=== PATIENT | female | born 1945 | race Two or more races ===

== ENCOUNTER 2021-02-09 08:56 | Emergency (ER) | payer MEDICARE, MEDICAID ==
[2021-02-09] MEDS ORDERED: Sodium Chloride 0.9% 10 ML Syringe FLUSH PRN (09:31)
[2021-02-09] MEDS ORDERED: Ketorolac 30 MG/ML SDV IVPUSH ONE (09:31)
[2021-02-09] MEDS ORDERED: Lactated Ringers 1,000 ML IV ONE (09:31)
[2021-02-09] MEDS ORDERED: Ondansetron 4 MG/2 ML SDV IVPUSH ONE (09:31)
--- NOTE | 2021-02-09 09:34 | EDM.PDOC ---
ED HPI GENERAL MEDICAL PROBLEM - General Chief Complaint: Back Pain or Injury Stated Complaint: FELL LAST NIGHT AND HURT BACK-WEAKNESS Time Seen by Provider: 02/09/21 09:24 Source of Information: Reports: Patient, Family, RN Notes Reviewed History Limitations: Reports: No Limitations - History of Present Illness INITIAL COMMENTS - FREE TEXT/NARRATIVE: 75-year-old female presents emergency department day complaint of chest wall pain, she injured herself last night when she fell in her bedroom hitting the bedpost on the left side of her chest posterior mid axillary area near the lower aspect of her rib cage she does have a significant bruise there. She also states she has not been eating and drinking very well feels nauseated had some dry heaves. Lower Back Pain Score (Numeric/FACES): 8 - Related Data Allergies Allergy/AdvReac Type Severity Reaction Status Date / Time No Known Allergies Allergy Verified 02/09/21 09:17 Home Meds: Home Meds Donepezil [Aricept] 5 mg PO ASDIRECTED 02/09/21 [History] Ezetimibe 10 mg PO DAILY 02/09/21 [History] Fluconazole 150 mg PO ASDIRECTED 02/09/21 [History] Meloxicam 15 mg PO ASDIRECTED 02/09/21 [History] Prazosin HCl [Prazosin] 2 mg PO DAILY 02/09/21 [History] Venlafaxine [Effexor] 75 mg PO DAILY 02/09/21 [History] amLODIPine [Norvasc] 5 mg PO DAILY 02/09/21 [History] Past Medical History Neurological History: Reports: Alzheimers Disease Social & Family History - Tobacco Use Tobacco Use Status *Q: Never Tobacco User - Recreational Drug Use Recreational Drug Use: No ED ROS GENERAL - Review of Systems Review Of Systems: See Below Constitutional: Reports: No Symptoms HEENT: Reports: No Symptoms Respiratory: Reports: No Symptoms Cardiovascular: Reports: Chest Pain GI/Abdominal: Reports: Nausea, Vomiting Musculoskeletal: Reports: Back Pain Skin: Reports: Bruising Neurological: Reports: No Symptoms ED EXAM, UPPER BACK/NECK PAIN - Physical Exam Exam: See Below Exam Limited By: No Limitations General Appearance: Alert, WD/WN, No Apparent Distress Cardiovascular/Respiratory: Regular Rate, Rhythm, No M/R/G, Normal Breath Sounds, No Respiratory Distress, Other (Does have bruising on her chest mid axillary line posterior to that there is a bruise about the size of a softball it is tender to the touch located about T10 area) GI/Abdominal: Soft, Non-Tender Back Exam: Normal Inspection. No: CVA Tenderness (R), CVA Tenderness (L), Paraspinal Tenderness, Vertebral Tenderness Course - Vital Signs Last Recorded V/S: Last Vital Signs Temp 96.6 F L 02/09/21 09:16 Pulse 113 H 02/09/21 09:16 Resp 18 02/09/21 09:16 BP 153/85 H 02/09/21 09:16 Pulse Ox 98 02/09/21 09:16 - Orders/Labs/Meds Orders: Active Orders 24 hr Category Date Time Status Peripheral IV Care [RC] . DIRECTED Care 02/09/21 09:31 Active Sodium Chloride 0.9% [Saline Flush] Med 02/09/21 09:31 Active 10 ml FLUSH ASDIRECTED PRN Peripheral IV Insertion Adult [OM.PC] Urgent Oth 02/09/21 09:30 Ordered Medication Orders Sodium Chloride (Sodium Chloride 0.9% 10 Ml Syringe) 10 ml FLUSH ASDIRECTED PRN PRN Reason: Keep Vein Open Last Admin: 02/09/21 10:02 Dose: 10 ml Documented by: PREILOR Labs: Laboratory Tests 02/09/21 02/09/21 02/09/21 Range/Units 10:00 10:00 12:44 WBC 16.5 H (4.5-11.0) K/uL RBC 5.00 (3.30-5.50) M/uL Hgb 15.0 (12.0-15.0) g/dL Hct 41.3 (36.0-48.0) % MCV 83 (80-98) fL MCH 30 (27-31) pg MCHC 36 (32-36) % Plt Count 334 (150-400) K/uL Neut % (Auto) 87.8 H (36-66) % Lymph % (Auto) 5.0 L (24-44) % [place] % (Auto) 7.0 H (2-6) % Eos % (Auto) 0.1 L (2-4) % Baso % (Auto) 0.1 (0-1) % Sodium 132 L (140-148) mmol/L Potassium 3.4 L (3.6-5.2) mmol/L Chloride 95 L (100-108) mmol/L Carbon Dioxide 24 (21-32) mmol/L Anion Gap 16.4 H (5.0-14.0) mmol/L BUN 45 H (7-18) mg/dL Creatinine 0.9 (0.6-1.0) mg/dL Est Cr Clr Drug Dosing 47.84 mL/min Estimated GFR (MDRD) > 60 (>60) Glucose 141 H (74-106) mg/dL Calcium 9.7 (8.5-10.1) mg/dL Urine Color Yellow (YELLOW) Urine Appearance Clear (CLEAR) Urine pH 6.0 (5.0-8.0) Ur Specific [place] >= 1.030 (1.008-1.030) Urine Protein 30 H (NEGATIVE) mg/dL Urine Glucose (UA) Negative (NEGATIVE) mg/dL Urine Ketones 40 H (NEGATIVE) mg/dL Urine Occult Blood Negative (NEGATIVE) Urine Nitrite Negative (NEGATIVE) Urine Bilirubin Moderate H (NEGATIVE) Urine Urobilinogen 0.2 (0.2-1.0) EU/dL Ur Leukocyte Esterase Negative (NEGATIVE) Urine RBC 0-5 (0-5) Urine WBC Not seen (0-5) Ur Epithelial Cells Not seen Amorphous Sediment Not seen Urine Bacteria Not seen Urine Mucus Moderate Meds: Medications Generic Name Dose Route Start Last Admin Trade Name Paige PRN Reason Stop Dose Admin Sodium Chloride 10 ml 02/09/21 09:31 02/09/21 10:02 Sodium Chloride 0.9% 10 Ml Syringe FLUSH 10 ml ASDIRECTED PRN Administration Keep Vein Open Discontinued Medications Generic Name Dose Route Start Last Admin Trade Name Freq PRN Reason Stop Dose Admin Hydrocodone Bitart/Acetaminophen 1 tab 02/09/21 11:25 02/09/21 11:36 Acetaminophen/Hydrocodone 325-5 Mg Tab PO 02/09/21 11:26 1 tab ONETIME ONE Administration Lactated Ringer's 1,000 mls @ 999 mls/hr 02/09/21 09:31 02/09/21 10:00 Ringers, Lactated IV 02/09/21 10:31 999 mls/hr BOLUS ONE Administration Ketorolac Tromethamine 30 mg 02/09/21 09:31 02/09/21 10:01 Ketorolac 30 Mg/Ml Sdv IVPUSH 02/09/21 09:32 30 mg ONETIME ONE Administration Ondansetron HCl 4 mg 02/09/21 09:31 02/09/21 10:01 Ondansetron 4 Mg/2 Ml Sdv IVPUSH 02/09/21 09:32 4 mg ONETIME ONE Administration Departure - Departure Time of Disposition: 13:10 Disposition: Home, Self-Care 01 Condition: Fair Clinical Impression: Chest wall pain - Discharge Information Instructions: Chest Wall Pain, [id number] Referrals: PCP,None [Primary Care Provider] - Forms: ED Department Discharge Additional Instructions: Use ibuprofen for baseline pain control use hydrocodone for breakthrough pain, please followup with your primary care provider in 3-5 days if not better, please call return to the emergency department with worsening of symptoms. Sepsis Event Note (ED) - Evaluation Sepsis Screening Result: No Definite Risk - Focused Exam Vital Signs: Vital Signs Temp Pulse Resp BP Pulse Ox 02/09/21 09:16 96.6 F L 113 H 18 153/85 H 98 02/09/21 09:14 96.6 F L 113 H 18 153/85 H 98 - My Orders Last 24 Hours: My Active Orders 02/09/21 09:30 Peripheral IV Insertion Adult [OM.PC] Urgent 02/09/21 09:31 Peripheral IV Care [RC] . DIRECTED Sodium Chloride 0.9% [Saline Flush] 10 ml FLUSH ASDIRECTED PRN - Assessment/Plan Last 24 Hours: My Active Orders 02/09/21 09:30 Peripheral IV Insertion Adult [OM.PC] Urgent 02/09/21 09:31 Peripheral IV Care [RC] . DIRECTED Sodium Chloride 0.9% [Saline Flush] 10 ml FLUSH ASDIRECTED PRN Plan: Assessment Acuity = acute Site and laterality = chest wall pain Etiology = secondary trauma Manifestations = none Location of injury = Home Lab values = WBC elevated 16.5 consistent with leukocytosis probably acute phase response potassium low 3.4 consistent with hypokalemia BUN equals 45 consistent with intravascular volume depletion specific gravity 1.03, chest x-ray shows no acute process Plan Good improvement combination Toradol hydrocodone in the emergency department as well as 1 L fluids discharged home with hydrocodone 5/325 1 tab p.o. every 4-6 hours as needed total #10 follow-up primary care 3 to 5 days if no improvement This note was dictated using [email or web address] voice recognition software please call with any questions on syntax or grammar.
--- NOTE | 2021-02-09 10:57 | CRLCR ---
For Patients: As a result of the Century Cures Act, medical imaging exams and procedure reports are released immediately into your electronic medical record. You may view this report before your referring provider. If you have questions, please contact your health care provider. Indication: Left rib pain Comparison: None available. Technique: PA and Lateral views chest Findings: There is hyperinflation and chronic interstitial change without evidence of dense consolidation, effusion or pneumothorax. The cardiomediastinal silhouette is within normal limits. The bony thorax is grossly intact. Impression: Hyperinflation and chronic interstitial changes without evidence of dense consolidation. Dictated by Emmett Neri MD @ 02/09/2021 10:54:55 AM (Electronically Signed)
[2021-02-09] MEDS ORDERED: Acetaminophen/HYDROcodone 325-5 MG Tab PO ONE (11:25)
== END 2021-02-09 13:44 | disposition home or self-care (01) ==
LOC: JP.ED 08:56
DX: R07.89 Other chest pain (principal)
CPT/HCPCS: 36415; 71046; 80048; 81001; 85025; 96374; 96375; 99283; A9270; J1885; J2405; J7120